=== PATIENT | male | born 1945 | race Caucasian/White ===

== ENCOUNTER 2022-11-30 02:33 | Emergency (ER) | payer MEDICARE, OTHER ==
[~2022-11-30] VITALS: Ht 167.6 cm; Wt 68.2 kg
[~2022-11-30 02:33] MED LIST: DORZ10DR10 OT; HYDR-3964 PO; LEVO750T68 PO; METR-159 PO; XAL0.005OS OP
[2022-11-30 02:41] VITALS: TEMP 98.5
[2022-11-30 03:05] LABS: BASOPHILS # (AUTO) 0.1 X10'3 (0-0.2); BASOPHILS % (AUTO) 0.7 % (0-1); EOSINOPHILS # (AUTO) 0.2 X10'3 (0-0.9); EOSINOPHILS % (AUTO) 1.1 % (0-6); HEMOGLOBIN 13.5 g/dl (14.0-17.9); LYMPHOCYTES # (AUTO) 2.3 X10'3 (1.1-4.8); LYMPHOCYTES % (AUTO) 15.7 % (21-51); MEAN CORPUSCULAR HEMOGLOBIN 30.7 PG (27.0-31.0); MEAN CORPUSCULAR VOLUME 93.1 FL (78-98); MEAN PLATELET VOLUME 7.4 FL (7.4-10.4); MONOCYTES # (AUTO) 1.5 X10'3 (0-0.9); MONOCYTES % (AUTO) 10.5 % (2-12); NEUTROPHILS # (AUTO) 10.5 X10'3 (1.8-7.7); PLATELET COUNT 244 X10'3 (140-440); RED CELL DISTRIBUTION WIDTH 13.8 % (11.5-14.5); WHITE BLOOD COUNT 14.5 X10'3 (4.5-11.0)
[2022-11-30 04:08] LABS: ALANINE AMINOTRANSFERASE 18 U/L (12-78); ALBUMIN 3.3 G/DL (3.4-5.0); ALBUMIN/GLOBULIN RATIO 0.8 (1.1-1.5); ALKALINE PHOSPHATASE 132 IU/L (46-116); ANION GAP 6 (8-16); ASPARTATE AMINO TRANSFERASE 24 U/L (10-37); BILIRUBIN,TOTAL 0.6 MG/DL (0.1-1.0); BLOOD UREA NITROGEN 13 MG/DL (7-18); BUN/CREATININE RATIO 16.3 (10.0-20.0); CALCIUM 8.9 MG/DL (8.5-10.1); CHLORIDE 106 MMOL/L (99-107); GLUCOSE 129 MG/DL (70-104); POTASSIUM 3.7 MMOL/L (3.5-5.1); SODIUM 141 MMOL/L (135-145); TOTAL CARBON DIOXIDE 29.2 MMOL/L (24-32); TOTAL PROTEIN 7.5 G/DL (6.4-8.2); eCRCL 69 ML/MIN; eGFR > 90 ML/MIN
[2022-11-30 04:17] LABS: PRO BRAIN NATRIURETIC PEPTIDE 31 PG/ML (0-450)
--- NOTE | 2022-11-30 06:33 | NUR ---
blood hemolyzed for the 3rd time.
[2022-11-30] MEDS ORDERED: methylPREDNISolone sod succ 125mg/2ml vial IV ONE (07:15)
[2022-11-30] MEDS ORDERED: azithromycin 250mg tablet PO ONE (07:15)
[2022-11-30] MEDS ORDERED: CefTRIAXone/D5W-Rocephin 1gm 50 ML IV ONE (07:15)
[2022-11-30] MEDS ORDERED: normal saline 1000ml 1,000 ML IV ONE (07:15)
[2022-11-30] MEDS ORDERED: iohexol 350MG/ML 100ml bottle IV ONE (07:37)
[2022-11-30] MEDS ORDERED: ondansetron/PF 4mg/2ml inj IV ONE (07:50)
[2022-11-30] MEDS ORDERED: ketorolac trometh. 30mg/ml inj. IV ONE (07:55)
[2022-11-30 08:56] VITALS: BP 138/75; PULSE 87; RESP 18; O2SAT 99
[2022-11-30] MEDS ORDERED: AZIT250T2 PO (10:34)
--- NOTE | 2022-11-30 10:48 | NUR ---
pt decided to leave [place] instead of staying for a cardiac workup
== END 2022-11-30 10:51 | disposition left against medical advice (07) ==
LOC: ER 02:34
DX: J18.9 Pneumonia, unspecified organism (principal); R07.9 Chest pain, unspecified
CPT/HCPCS: 36415; 71045; 71275; 80053; 83605; 83880; 84484; 85025; 87040; 93005; 96365; 96375; 99285; J0696; J1885; J2405; J2930; J3490; J7030; Q9967